=== PATIENT | female | born 1990 | race Caucasian/White ===

== ENCOUNTER 2018-11-08 21:55 | Emergency (ER) | payer MEDICARE, MEDICAID ==
[~2018-11-08] VITALS: Ht 152.4 cm; Wt 53.8 kg
[~2018-11-08 21:55] MED LIST: ALBU8.5H5 INH; ALEN10TA6 PO; BISA10SU65 PR; CELE200C PO; DIAZ5TAB PO; ERGO500017 PO; FERR325T18 PO; HYDR-3245 PO; HYDR4TAB48 PO; HYDROMORPHONE PO; MORP-52 PO; MORP30TA3 PO; MORPHINE PO; MULT-484 PO; MULT-750 PO; MULTIVITAMINS PO; ONDA4TAB10 PO; OXYC5TAB3 PO; POLY17PO5 PO; PREG25CA PO; PREG75CA PO; SENN1TAB8 PO; TRAM-47 PO
--- NOTE | 2018-11-08 22:51 | NUR ---
Patient given discharge instructions and they have confirmed that they understand the instructions. Patient ambulatory with steady gait.
[2018-11-08 22:52] VITALS: BP 138/95
== END 2018-11-08 22:54 | disposition home or self-care (01) ==
LOC: ED 22:21
DX: M79.5 Residual foreign body in soft tissue (principal); F17.200 Nicotine dependence, unspecified, uncomplicated; J45.909 Unspecified asthma, uncomplicated; Z88.0 Allergy status to penicillin
CPT/HCPCS: 99283